=== PATIENT | male | born 1995 | race African-American/Black ===

== ENCOUNTER 2019-09-06 08:30 | Emergency (ER) | payer SELFPAY ==
[2019-09-06] MEDS ORDERED: HYDROCODONE/APAP 10/325 TAB ONE (09:13)
[2019-09-06] MEDS ORDERED: DIAZEPAM 5 MG TABLET ONE (09:13)
--- NOTE | 2019-09-06 10:36 | ER ---
Nurse's Notes [facility] Name: Chris Goldberg Age: 24 yrs Sex: Male : 1995 Arrival Date: 09/06/2019 Time: 08:34 Bed 19 Private MD: Diagnosis: Low back pain Presentation: 09/06 08:59 Presenting complaint: Patient states: kemar mid back pain all morning, had similar iw episode a week ago, hx of back pain but this feels different than usual pain, denies injury, denies urinary s/s. Transition of care: patient was not received from another setting of care. Onset of symptoms was September 06, 2019. Risk Assessment: Do you want to hurt yourself or someone else? Patient reports no desire to harm self or others. Initial Sepsis Screen: Does the patient meet any 2 criteria? No. Patient's initial sepsis screen is negative. Does the patient have a suspected source of infection? No. Patient's initial sepsis screen is negative. Care prior to arrival: None. 08:59 Method Of Arrival: Ambulatory iw 08:59 Acuity: YOLI 3 iw Historical: - Allergies: 09:02 NKDA; iw - Home Meds: 09:02 None [Active]; iw - PMHx: 09:02 Arthritis; Asthma; iw - PSHx: 09:02 None; iw - Immunization history:: Adult Immunizations not up to date. - Coronavirus screen:: The patient has NOT traveled to [place], [place], or [place] in the past 14 days. Proceed with normal triage process as indicated. - Social history:: Smoking status: Patient denies any tobacco usage or history of. - Ebola Screening: : Patient negative for fever greater than or equal to 101.5 degrees Fahrenheit, and additional compatible Ebola Virus Disease symptoms Patient denies exposure to infectious person Patient denies travel to an Ebola-affected area in the 21 days before illness onset No symptoms or risks identified at this time. Screenin:26 Abuse screen: Denies threats or abuse. Denies injuries from another. Nutritional sg screening: No deficits noted. Tuberculosis screening: No symptoms or risk factors identified. Never had TB. Fall Risk None identified. Assessment: 08:55 General: Appears in no apparent distress. well groomed, well developed, well nourished, sg Behavior is calm, cooperative, appropriate for age. Pain: Complains of pain in lumbar area Quality of pain is described as aching, sharp, stabbing. Neuro: Level of Consciousness is awake, alert, obeys commands, Oriented to person, place, time, Speech is normal, Facial symmetry appears normal. Cardiovascular: Patient's skin is warm and dry. Chest pain is denied. Respiratory: Airway is patent Respiratory effort is even, unlabored, Respiratory pattern is regular, symmetrical. GI: No signs and/or symptoms were reported involving the gastrointestinal system. : No signs and/or symptoms were reported regarding the genitourinary system. EENT: No signs and/or symptoms were reported regarding the EENT system. Derm: Skin is intact, is healthy with good turgor, Skin is dry, Skin is normal. Musculoskeletal: Circulation, motion, and sensation intact. Range of motion: ambulatory with slow steady gait. Vital Signs: 09:02 BP 133 / 85; Pulse 73; Resp 16; Temp 98.0; Pulse Ox 100% on R/A; Weight 56.7 kg; Height iw 5 ft. 8 in. (172.72 cm); Pain 810; 09:02 Body Mass Index 19.01 (56.70 kg, 172.72 cm) ED Course: 08:34 Patient arrived in ED. mr 08:43 Giuseppe Rivas PA is PHCP. [facility] 08:43 Raphael Moreno MD is Attending Physician. [facility] 09:01 Triage completed. iw 09:02 Arm band placed on. iw 09:07 Kashmir Manzano, RN is Primary Nurse. sg 10:33 Awaiting transportation. sg Administered Medications: 09:14 Drug: Valium 5 mg Route: PO; sg 09:14 Drug: [place] 10 mg-325 mg 1 tabs Route: PO; sg Outcome: 10:35 Discharge ordered by . [facility] 11:48 Patient left the ED. sg Signatures: Kashmir Manzano, CLAIR SELF Giuseppe Rivas PA PA [facility] Alina Mitchell Carisa Hunter RN RN
--- NOTE | 2019-09-06 10:36 | EDPHYS ---
Physician Documentation [facility] Name: Chris Goldberg Age: 24 yrs Sex: Male : 1995 Arrival Date: 09/06/2019 Time: 08:34 Bed 19 Private MD: MANJU Physician Raphael Moreno HPI: 09/06 09:06 This 24 yrs old Black Male presents to ER via Ambulatory with complaints of Back Pain. jmm 09:06 The patient presents with pain that is acute. Onset: The symptoms/episode jmm began/occurred this morning. The pain does not radiate. Associated signs and symptoms: Pertinent negatives: abdominal pain, dysuria, fever, incontinence, numbness, tingling, urinary retention, vomiting, weakness. The patient has experienced similar episodes in the past. Patient states he awoke to lower back pain. Patient states he has chronic back pain with a similar episode approx 2 weeks ago. Pain is intense and states it makes him short of breath. Patient denies IV drug use, fever, or a history of spinal surgery. . Historical: - Allergies: 09:02 NKDA; iw - Home Meds: 09:02 None [Active]; iw - PMHx: 09:02 Arthritis; Asthma; iw - PSHx: 09:02 None; iw - Immunization history:: Adult Immunizations not up to date. - Coronavirus screen:: The patient has NOT traveled to [place], [place], or [place] in the past 14 days. Proceed with normal triage process as indicated. - Social history:: Smoking status: Patient denies any tobacco usage or history of. - Ebola Screening: : Patient negative for fever greater than or equal to 101.5 degrees Fahrenheit, and additional compatible Ebola Virus Disease symptoms Patient denies exposure to infectious person Patient denies travel to an Ebola-affected area in the 21 days before illness onset No symptoms or risks identified at this time. ROS: 09:06 Constitutional: Negative for fever, chills, and weight loss, Cardiovascular: Negative jm for chest pain, palpitations, and edema, Respiratory: Negative for shortness of breath, cough, wheezing, and pleuritic chest pain. 09:06 Back: Positive for pain with movement. 09:06 All other systems are negative. Exam: 09:06 Constitutional: This is a well developed, well nourished patient who is awake, alert, jmm and in no acute distress. Head/Face: atraumatic. Eyes: EOMI, no conjunctival erythema appreciated ENT: Moist Mucus Membranes Neck: Trachea midline, Supple Chest/axilla: Normal chest wall appearance and motion. Cardiovascular: Regular rate and rhythm. No edema appreciated Respiratory: Normal respirations, no respiratory distress appreciated 09:06 Back: pain, that is moderate, of the lumbar area. 09:06 Musculoskeletal/extremity: ROM: intact in all extremities. 09:06 Neuro: Orientation: is normal, Mentation: is normal, Memory: is normal. 09:06 Psych: Behavior/mood is pleasant, cooperative. Vital Signs: 09:02 BP 133 / 85; Pulse 73; Resp 16; Temp 98.0; Pulse Ox 100% on R/A; Weight 56.7 kg; Height iw 5 ft. 8 in. (172.72 cm); Pain 8/10; 09:02 Body Mass Index 19.01 (56.70 kg, 172.72 cm) iw MDM: 08:54 Patient medically screened. [facility] 10:32 Data reviewed: vital signs, nurses notes. Counseling: I had a detailed discussion with [facility] the patient and/or guardian regarding: the historical points, exam findings, and any diagnostic results supporting the discharge/admit diagnosis, the need for outpatient follow up, to return to the emergency department if symptoms worsen or persist or if there are any questions or concerns that arise at home. ED course: Pain is relieved in the ED. Episode is similar to previous. I do not suspect abscess, cord compression, or cauda equina. Patient is advised to follow up with pcp and otherwise given strict return precautions. Patient understood and agrees with the plan of care. . Administered Medications: 09:14 Drug: Valium 5 mg Route: PO; sg 09:14 Drug: [place] 10 mg-325 mg 1 tabs Route: PO; sg Disposition: 14:47 Co-signature as Attending Physician, Raphael Moreno MD I agree with the assessment and [facility] plan of care. Disposition: 09/06/19 10:35 Discharged to Home. Impression: Low back pain. - Condition is Stable. - Discharge Instructions: Back Pain, Adult. - Prescriptions for Prednisone 20 mg Oral Tablet - take 3 tablet by ORAL route once daily for 5 days; 15 tablet. orphenadrine citrate 100 mg Oral Tablet Sustained Release - take 1 tablet by ORAL route 2 times per day As needed; 20 tablet. - Medication Reconciliation Form, Thank You Letter, Antibiotic Education, Prescription Opioid Use form. - Follow up: Private Physician; When: 2 - 3 days; Reason: Recheck today's complaints, Continuance of care, Re-evaluation by your physician. Signatures: Kashmir Manzano RN RN sg Anderson, Corey, MD MD cha Mickail, Joel, PA PA jmm Williams, Irene, RN RN iw Corrections: (The following items were deleted from the chart) 11:48 10:35 09/06/2019 10:35 Discharged to Home. Impression: Low back pain. Condition is sg Stable. Forms are Medication Reconciliation Form, Thank You Letter, Antibiotic Education, Prescription Opioid Use. Follow up: Private Physician; When: 2 - 3 days; Reason: Recheck today's complaints, Continuance of care, Re-evaluation by your physician. [facility]
[2019-09-06 12:00] VITALS: BP 133/85; TEMP 98; O2SAT 100
== END 2019-09-06 11:48 | disposition home or self-care (01) ==
LOC: ER 08:30
DX: M54.5 Low back pain (principal)
CPT/HCPCS: 99282

== ENCOUNTER 2021-08-18 17:26 | Emergency (ER) | payer SELFPAY ==
--- NOTE | 2021-08-18 19:57 | ER ---
Nurse's Notes [facility] Name: Chris Goldberg Age: 26 yrs Sex: Male : 1995 Arrival Date: 08/18/2021 Time: 17:27 Bed 11 Private MD: Diagnosis: Otitis media, unspecified, right ear Presentation: 08/18 18:15 Chief complaint: Patient states: both ears hurt but the left has more pressure than the jg9 right, I had a URI 3 weeks ago and I was getting back to normal but then I noticed my ears bothering me. Coronavirus screen: Vaccine status: Patient reports being unvaccinated. Ebola Screen: Patient negative for fever greater than or equal to 101.5 degrees Fahrenheit, and additional compatible Ebola Virus Disease symptoms Patient denies exposure to infectious person. Patient denies travel to an Ebola-affected area in the 21 days before illness onset. Initial Sepsis Screen: Does the patient meet any 2 criteria? No. Patient's initial sepsis screen is negative. Does the patient have a suspected source of infection? No. Patient's initial sepsis screen is negative. Risk Assessment: Do you want to hurt yourself or someone else? Patient reports no desire to harm self or others. Onset of symptoms is unknown. 18:15 Method Of Arrival: Ambulatory 9 18:15 Acuity: YOLI 5 jg9 Triage Assessment: 18:18 General: Appears in no apparent distress. Behavior is calm, cooperative. Pain: jg9 Complains of pain in right ear and left ear. EENT: Reports pressure in both ears more on left than r recent URI. Historical: - Allergies: 18:17 NKDA; jg9 - PMHx: 18:17 Arthritis; Asthma; jg9 - Immunization history:: Client reports having NOT received the Covid vaccine. Pneumococcal vaccine is not up to date, Flu vaccine is not up to date. - Social history:: Smoking status: Patient/guardian denies using tobacco, the patient reports quitting approximately 1 years ago. Screenin:18 Abuse screen: Denies threats or abuse. Denies injuries from another. Nutritional jg9 screening: No deficits noted. Tuberculosis screening: No symptoms or risk factors identified. Fall Risk None identified. Assessment: 19:59 General: Appears in no apparent distress. Behavior is calm, cooperative, appropriate ab2 for age. Pain: Complains of pain in right ear and left ear Pain currently is 4 out of 10 on a pain scale. Neuro: No deficits noted. 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 Gait is steady. Cardiovascular: No deficits noted. Denies chest pain, shortness of breath, Heart tones S1 S2 present Patient's skin is warm and dry. Respiratory: No deficits noted. Airway is patent Breath sounds are clear bilaterally. GI: No deficits noted. No signs and/or symptoms were reported involving the gastrointestinal system. : No deficits noted. No signs and/or symptoms were reported regarding the genitourinary system. EENT: Reports ear drainage bilaterally. Derm: No deficits noted. No signs and/or symptoms reported regarding the dermatologic system. Musculoskeletal: No deficits noted. No signs and/or symptoms reported regarding the musculoskeletal system. Vital Signs: 18:15 BP 127 / 83; Pulse 78; Resp 16; Temp 98.2; Pulse Ox 100% on R/A; Weight 58.97 kg (R); jg9 Height 5 ft. 7 in. (170.18 cm) (R); 20:04 BP 135 / 73; Pulse 78; Resp 16; Temp 97.8; Pulse Ox 100% ; lt3 18:15 Body Mass Index 20.36 (58.97 kg, 170.18 cm) jg9 ED Course: 17:27 Patient arrived in ED. as 18:17 Triage completed. jg9 18:19 Arm band placed on right wrist. jg9 19:50 Jean Paul Dominguez NP is PHCP. pm1 19:50 Brenton Head MD is Attending Physician. pm1 19:58 Rey Fiore is Primary Nurse. ab2 20:00 Bed in low position. Call light in reach. Side rails up X2. ab2 20:00 No provider procedures requiring assistance completed. Patient did not have IV access ab2 during this emergency room visit. Administered Medications: No medications were administered Outcome: 19:56 Discharge ordered by . pm1 20:04 Discharged to home ab2 20:04 Condition: good 20:04 Discharge instructions given to patient, Instructed on discharge instructions, Demonstrated understanding of instructions, medications. 20:05 Patient left the ED. ab2 Signatures: Aislinn Cash Patrick, GAMBLING FLOOR SUPERVISOR GAMBLING FLOOR SUPERVISOR pm1 Ramona Lora lt3 Beth Juan RN RN jg9 Rey Fiore ab2
--- NOTE | 2021-08-18 19:57 | EDPHYS ---
Physician Documentation [facility] Name: Chris Goldberg Age: 26 yrs Sex: Male : 1995 Arrival Date: 08/18/2021 Time: 17:27 Bed 11 Private MD: ED Physician Brenton Head HPI: 08/18 19:55 This 26 yrs old Black Male presents to ER via Ambulatory with complaints of Ear Pain. pm1 19:55 The patient presents with pain. The complaints affect the right ear and left ear. pm1 Onset: The symptoms/episode began/occurred today. Modifying factors: The symptoms are alleviated by nothing, the symptoms are aggravated by nothing. Associated signs and symptoms: Pertinent negatives: fever. Severity of symptoms: in the emergency department the symptoms are unchanged. The patient has not experienced similar symptoms in the past. The patient has not recently seen a physician. right ear worse than left ear. Historical: - Allergies: 18:17 NKDA; jg9 - PMHx: 18:17 Arthritis; Asthma; jg9 - Immunization history:: Client reports having NOT received the Covid vaccine. Pneumococcal vaccine is not up to date, Flu vaccine is not up to date. - Social history:: Smoking status: Patient/guardian denies using tobacco, the patient reports quitting approximately 1 years ago. ROS: 19:55 Constitutional: Negative for fever, chills, and weight loss. pm1 19:55 Cardiovascular: Negative for chest pain, palpitations, and edema, Respiratory: Negative for shortness of breath, cough, wheezing, and pleuritic chest pain, Abdomen/GI: Negative for abdominal pain, nausea, vomiting, diarrhea, and constipation, MS/Extremity: Negative for injury and deformity, Skin: Negative for injury, rash, and discoloration, Neuro: Negative for headache, weakness, numbness, tingling, and seizure. 19:55 ENT: Positive for ear pain, Negative for sore throat. 19:55 All other systems are negative. Exam: 19:55 Constitutional: This is a well developed, well nourished patient who is awake, alert, pm1 and in no acute distress. Head/Face: Normocephalic, atraumatic. 19:55 Skin: Warm, dry with normal turgor. Normal color with no rashes, no lesions, and no evidence of cellulitis. MS/ Extremity: Pulses equal, no cyanosis. Neurovascular intact. Full, normal range of motion. 19:55 Eyes: Exam is negative for acute changes, Extraocular movements: no acute changes, Conjunctiva: no acute changes, no injection, Sclera: no acute changes, icterus, is not appreciated. 19:55 ENT: External ear(s): are unremarkable, Ear canal(s): are normal, TM's: bulging, bilaterally, erythema, that is mild, on the right, Posterior pharynx: no acute changes, Airway: no evidence of obstruction, Tonsils: are normal in appearance, peritonsillar mass, is not appreciated. 19:55 Cardiovascular: Exam negative for acute changes, Rate: normal, Rhythm: regular, Pulses: no pulse deficits are appreciated. 19:55 Respiratory: Exam negative for acute changes, respiratory distress, shortness of breath. 19:55 Neuro: Exam negative for acute changes, Orientation: is normal, Mentation: is normal, Motor: is normal, moves all fours. Vital Signs: 18:15 BP 127 / 83; Pulse 78; Resp 16; Temp 98.2; Pulse Ox 100% on R/A; Weight 58.97 kg (R); jg9 Height 5 ft. 7 in. (170.18 cm) (R); 20:04 BP 135 / 73; Pulse 78; Resp 16; Temp 97.8; Pulse Ox 100% ; lt3 18:15 Body Mass Index 20.36 (58.97 kg, 170.18 cm) jg9 MDM: 19:50 Patient medically screened. pm1 19:55 Data reviewed: vital signs. Data interpreted: Pulse oximetry: on room air is 100 %. pm1 Interpretation: normal. Counseling: I had a detailed discussion with the patient and/or guardian regarding: the historical points, exam findings, and any diagnostic results supporting the discharge/admit diagnosis, the need for outpatient follow up, to return to the emergency department if symptoms worsen or persist or if there are any questions or concerns that arise at home. Administered Medications: No medications were administered Disposition: 22:00 Co-signature as Attending Physician, Brenton Head MD I agree with the assessment and kdr plan of care. Disposition Summary: 08/18/21 19:56 Discharge Ordered Location: Home pm1 Problem: new pm1 Symptoms: have improved pm1 Condition: Stable pm1 Diagnosis - Otitis media, unspecified, right ear pm1 Followup: pm1 - With: Emergency Department - When: As needed - Reason: Worsening of condition Followup: pm1 - With: Private Physician - When: 2 - 3 days - Reason: Recheck today's complaints, Continuance of care, Re-evaluation by your physician Discharge Instructions: - Discharge Summary Sheet pm1 - Otitis Media, Adult pm1 Forms: - Medication Reconciliation Form pm1 - Thank You Letter pm1 - Antibiotic Education pm1 - Prescription Opioid Use pm1 Prescriptions: - Amoxicillin 500 mg Oral Capsule - take 1 capsule by ORAL route every 8 hours for 10 days; 30 tablet; Refills: 0, pm1 Product Selection Permitted - guaifenesin 400 mg Oral tablet - take 1 tablet by ORAL route every 4 hours As needed as needed; 20 tablet; pm1 Refills: 0, Product Selection Permitted Signatures: Brenton Head MD MD kdr Marinas, Patrick, NP ROASTER HELPER pm1 Beth Juan RN RN jg9
[2021-08-18 20:10] VITALS: O2SAT 100
[2021-08-18 20:11] VITALS: BP 135/73; TEMP 97.8
== END 2021-08-18 20:05 | disposition home or self-care (01) ==
LOC: ER 17:26
DX: H66.91 Otitis media, unspecified, right ear (principal)
CPT/HCPCS: 99281

== ENCOUNTER 2022-04-04 08:02 | Emergency (ER) | payer OTHER, SELFPAY ==
[2022-04-04] MEDS ORDERED: FLUORESCEIN SODIUM 1 MG/WRAP ONE (08:35)
[2022-04-04] MEDS ORDERED: TETRACAINE HCL 0.5% 4ML OPTH ONE (08:35)
[2022-04-04] MEDS ORDERED: Ringers Lactate 1,000 ML IV ONE (08:46)
--- NOTE | 2022-04-04 10:25 | ER ---
Nurse's Notes 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 Coronavirus screen: At this time, the client does not indicate any symptoms associated with coronavirus-19. Ebola Screen: Patient negative for fever greater than or equal to 101.5 degrees Fahrenheit, and additional compatible Ebola Virus Disease symptoms Patient denies exposure to infectious person. Patient denies travel to an Ebola-affected area in the 21 days before illness onset. No symptoms or risks identified at this time. Initial Sepsis Screen: Does the patient meet any 2 criteria? No. Patient's initial sepsis screen is negative. Does the patient have a suspected source of infection? No. Patient's initial sepsis screen is negative. Risk Assessment: Do you want to hurt yourself or someone else? Patient reports no desire to harm self or others. Onset of symptoms was April 04, 2022. 08:11 Method Of Arrival: Ambulatory iw 08:11 Acuity: YOLI 4 iw Historical: - Allergies: 08:13 NKDA; iw - PMHx: 08:13 Arthritis; Asthma; iw - Immunization history:: Adult Immunizations unknown. - Social history:: Smoking status: Patient denies any tobacco usage or history of. Screenin:31 Abuse screen: Denies threats or abuse. Denies injuries from another. Nutritional iw screening: No deficits noted. Tuberculosis screening: No symptoms or risk factors identified. Fall Risk None identified. Assessment: 08:31 General: Appears in no apparent distress. uncomfortable, Behavior is calm, cooperative. iw Pain: Complains of pain in left eye. Neuro: Level of Consciousness is awake, alert, obeys commands, Oriented to person, place, time, situation, Moves all extremities. Cardiovascular: Patient's skin is warm and dry. Respiratory: Respiratory effort is even, unlabored, Respiratory pattern is regular. EENT: Eyes are tearing on outer aspect of conjuctiva of left eye, iris of left eye and inner aspect of conjunctiva of left eye Sclera/Cornea are reddened in outer aspect of conjuctiva of left eye, iris of left eye and inner aspect of conjunctiva of left eye. Derm: Skin is intact, is healthy with good turgor. Musculoskeletal: Range of motion: intact in all extremities. Vital Signs: 08:11 BP 133 / 81; Pulse 76; Resp 16; Pulse Ox 100% on R/A; iw ED Course: 08:04 Patient arrived in ED. am2 08:09 Raphael Sarmiento PA is PHCP. cp 08:10 Karl Blanco DO is Attending Physician. cp 08:13 Triage completed. iw 08:14 Carisa Hunter, RN is Primary Nurse. iw 08:31 Arm band placed on. iw 08:32 Assist provider with eye exam of left eye. using fluorescein stain, Performed by Raphael iw Guillermina MENDIETA Patient tolerated well. 08:35 Patient has correct armband on for positive identification. iw 10:22 Lazaro Ken MD is Referral Physician. cp 10:54 Patient did not have IV access during this emergency room visit. iw Administered Medications: 08:32 Drug: Tetracaine Drops 0.5 % 1 drops {Note: administered by PA for eye exam.} Route: aa5 Ophthalmic; Site: left eye; 08:54 Drug: Lactated Ringers Solution 1000 ml {Note: left eye for irrigation .} Route: IV; iw Rate: 1000 ml/hr; Site: Other; 10:00 Follow up: IV Status: Completed infusion iw 10:25 Drug: Gentamicin Drops 0.3 % 1 drops Route: Ophthalmic; Site: left eye; aa5 Medication: 08:45 VIS not applicable for this client. iw Outcome: 10:24 Discharge ordered by . cp 10:54 Discharged to home ambulatory. iw 10:54 Condition: good 10:54 Discharge instructions given to patient, Instructed on discharge instructions, follow up and referral plans. medication usage, Demonstrated understanding of instructions, follow-up care, medications, Prescriptions given X 1. 10:55 Patient left the ED. iw Signatures: Carisa Hunter, RN RN iw Lisa Springer RN RN aa5 Raphael Sarmiento PA PA cp Moreno, Amanda am2 Corrections: (The following items were deleted from the chart) 08: 08:11 Pulse 76bpm; Resp 16bpm; Pulse Ox 100% RA; iw iw 10:29 10:00 Tetracaine Drops 0.5 % 1 drops Ophthalmic in left eye aa5 aa5
--- NOTE | 2022-04-04 10:25 | EDPHYS ---
Physician Documentation [facility] Name: Chris Goldberg Age: 27 yrs Sex: Male : 1995 Arrival Date: 04/04/2022 Time: 08:04 Bed 11 Private MD: ED Physician Karl Blanco HPI: 04/04 08:20 This 27 yrs old Black Male presents to ER via Ambulatory with complaints of Chemical cp Exposure In Eye. 08:20 The patient sustained a splash, to the left eye, caused by cleaning solution. Onset: cp The symptoms/episode began/occurred just prior to arrival. Associated signs and symptoms: Pertinent negatives: dizziness, fever, headache, runny nose. Patient does not utilize any form of vision correction. 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 Historical: - Allergies: 08:13 NKDA; iw - PMHx: 08:13 Arthritis; Asthma; iw - Immunization history:: Adult Immunizations unknown. - Social history:: Smoking status: Patient denies any tobacco usage or history of. ROS: 08:25 Eyes: Positive for foreign body sensation, pain, redness, of the left eye, Negative for cp discharge. 08:25 Constitutional: Negative for body aches, chills, fever, poor PO intake. cp 08:25 Respiratory: Negative for cough, shortness of breath, wheezing. 08:25 Skin: Negative for cellulitis, rash. Exam: 08:30 Constitutional: The patient appears in no acute distress, alert, awake, well developed, cp well nourished, uncomfortable. 08:30 Head/Face: Normocephalic, atraumatic. cp 08:30 Eyes: Periorbital structures: appear normal, Pupils: equal, round, and reactive to light and accomodation, Extraocular movements: intact throughout, Conjunctiva: injected, in the left eye, Corneas: abrasion, that is small, lower aspect of left cornea, foreign body, is not appreciated, a fluorescein strip employed to appreciate the findings, Lids and lashes: appear normal, on the left, Visual tate: are intact, Examination of the other eye reveals no obvious gross abnormality. 08:30 ENT: External ear(s): are unremarkable, Nose: Mouth: Lips: moist, Oral mucosa: pink and intact, moist, Posterior pharynx: Airway: no evidence of obstruction, patent. 08:30 Chest/axilla: Inspection: normal. cp 08:30 Cardiovascular: Rate: normal, Rhythm: regular. 08:30 Respiratory: the patient does not display signs of respiratory distress, Respirations: normal, no use of accessory muscles, no retractions, labored breathing, is not present, Breath sounds: are clear throughout, no decreased breath sounds, no stridor, no wheezing. 08:30 Skin: no rash present. Vital Signs: 08:11 BP 133 / 81; Pulse 76; Resp 16; Pulse Ox 100% on R/A; iw MDM: 08:16 Patient medically screened. cp 08:35 Differential diagnosis: Corneal abrasion of left eye. Foreign body in left eye. cp Chemical conjunctivitis in left eye. 10:24 Data reviewed: vital signs, nurses notes. cp 10:24 Counseling: I had a detailed discussion with the patient and/or guardian regarding: the cp historical points, exam findings, and any diagnostic results supporting the discharge/admit diagnosis, the need for outpatient follow up, an opthalmologist, to return to the emergency department if symptoms worsen or persist or if there are any questions or concerns that arise at home. Response to treatment: the patient's symptoms have markedly improved after treatment, and as a result, I will discharge patient. 04/04 08:16 Order name: Eye Tray; Complete Time: 08:29 cp 04/04 08:16 Order name: Fluoresene Opth strip; Complete Time: 08:29 cp 04/04 08:16 Order name: Visual Acuity; Complete Time: 10:18 cp 04/04 08:16 Order name: Misc. Order: eye irrigation; Complete Time: 08:55 cp Administered Medications: 08:32 Drug: Tetracaine Drops 0.5 % 1 drops {Note: administered by PA for eye exam.} Route: aa5 Ophthalmic; Site: left eye; 08:54 Drug: Lactated Ringers Solution 1000 ml {Note: left eye for irrigation .} Route: IV; iw Rate: 1000 ml/hr; Site: Other; 10:00 Follow up: IV Status: Completed infusion iw 10:25 Drug: Gentamicin Drops 0.3 % 1 drops Route: Ophthalmic; Site: left eye; aa5 Disposition: 04/05 10:46 Co-signature as Attending Physician, Karl Blanco DO I was immediately available on-site ms3 in the Emergency Department for consultation in the care of the patient. . Disposition Summary: 04/04/22 10:24 Discharge Ordered Location: Home cp Problem: new cp Symptoms: have improved cp Condition: Stable cp Diagnosis - Other conjunctivitis - chemical left eye cp - Injury of conjunctiva and corneal abrasion without foreign body, left eye, initial cp encounter Followup: cp - With: Lazaro Ken MD - When: 1 - 2 days - Reason: Recheck today's complaints Discharge Instructions: - Discharge Summary Sheet cp - Chemical Conjunctivitis, Adult cp - Corneal Abrasion cp Forms: - Medication Reconciliation Form cp - Thank You Letter cp - Antibiotic Education cp - Prescription Opioid Use cp Prescriptions: - Gentamicin 0.3 % Ophthalmic Drops - instill 1 drop by OPHTHALMIC route every 4 hours for 7 days; 1 bottle; Refills: cp 0, Product Selection Permitted Signatures: Carisa Hunter RN RN iw Lisa Springer RN RN aa5 Raphael Sarmiento PA PA cp Karl Blanco DO DO ms3 Corrections: (The following items were deleted from the chart) 09:34 04/04 08:20 Patient c/o redness and pain to left eye after unknown solution splashed 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 cp
[2022-04-04] MEDS ORDERED: GENTAMICIN 0.3% OPTH DROP 5ML ONE (10:34)
[2022-04-04 11:00] VITALS: BP 133/81; O2SAT 100
== END 2022-04-04 10:55 | disposition home or self-care (01) ==
LOC: ER 08:02
DX: S05.02XA Injury of conjunctiva and corneal abrasion without foreign body, left eye, initial encounter (principal); H10.212 Acute toxic conjunctivitis, left eye
CPT/HCPCS: 96360; 99283; J7120

== ENCOUNTER 2024-12-16 08:22 | Emergency (ER) | payer OTHER, SELFPAY ==
--- OUTSIDE RECORDS SUMMARY | 2024-12-16 08:25 | XMS REPORT | Continuity of Care Document ---
Author Name Unknown Address [address] [place] [address] [address] [place] [address] [facility] Address [address] [place] [address] Care Team Providers Care Funeral Home Director Name Role Phone Unavailable Unavailable Unavailable Encounters Start Date/Time End Date/Time Encounter Type Admission Type Attending Clinicians Care Facility Care Department Encounter ID Source 2023-08-06 13:38:35 2023-08-06 13:38:35 Outpatient [facility] [id number] Mike Steel
[2024-12-16] MEDS ORDERED: ONDANSETRON 4 MG/2 ML VIAL ONE (08:56)
[2024-12-16] MEDS ORDERED: FAMOTIDINE 20 MG/2 ML VIAL IV ONE (08:57)
[2024-12-16] MEDS ORDERED: NA CHLORIDE 0.9% 1,000 ML ONE (08:57)
[2024-12-16 09:01] LABS: Absolute Lymphocytes (CBC) 1.1 K/uL (0.7-4.9); Absolute Monocytes 0.6 K/uL (0.1-1.3); Absolute Neutrophil 3.8 K/uL (1.8-8.0); Basophils % 0.5 % (0-1.3); Eosinophils % 0.4 % (0-4.4); Hematocrit 43.5 % (39.6-49.0); Hemoglobin 14.9 g/dL (13.6-17.9); Lymphocytes % 19.6 % (15.3-44.8); MCH 29.9 pg (27.0-35.0); MCHC 34.3 g/dL (32.0-36.0); MCV 87.2 fL (80-100); MPV 7.6 fL (7.6-11.3); Monocytes % 10.5 % (3.3-12.3); Nucleated Red Blood Cells % 0.1 % (0-0); Platelets 186 thou/uL (152-406); RBC Red Blood Cell Count 4.99 M/uL (4.33-5.43); Red Cell Distribution Width 13.8 % (12.1-15.2)
[2024-12-16 09:41] LABS: Albumin 3.8 g/dL (3.4-5.0); Anion Gap 12.7 mEq/L (5.0-15.0); Bilirubin Total 0.3 mg/dL (0.2-1.0); Globulin 3.8 g/dL (2.3-3.5); Potassium 3.7 mEq/L (3.5-5.1); Protein, Total 7.6 g/dL (6.4-8.2)
--- NOTE | 2024-12-16 09:46 | ER ---
Nurse's Notes [facility] Name: Chris Goldberg Age: 29 yrs Sex: Male : 1995 Arrival Date: 12/16/2024 Time: 08:22 Bed 6 Private MD: Diagnosis: Nausea with vomiting, unspecified;Abdominal pain, unspecified;Elevated blood-pressure reading, without diagnosis of hypertension Presentation: 12/16 08:38 Chief complaint: Patient states: Abdominal pain with N/V since Friday. Coronavirus ll1 screen: Client denies travel out of the [place] in the last 14 days. fatigue, nausea, vomiting. Client presents with at least one sign or symptom that may indicate coronavirus-19. Standard/surgical mask placed on the client. Ebola Screen: Patient denies travel to an Ebola-affected area in the 21 days before illness onset. Initial Sepsis Screen: Does the patient meet any 2 criteria? No. Patient's initial sepsis screen is negative. Does the patient have a suspected source of infection? No. Patient's initial sepsis screen is negative. Risk Assessment: Do you want to hurt yourself or someone else? Patient reports no desire to harm self or others. Onset of symptoms was December 13, 2024. 08:38 Method Of Arrival: Ambulatory ll1 08:38 Acuity: YOLI 3 ll1 Historical: - Allergies: 08:30 NKDA; ll1 - PMHx: 08:30 Arthritis; Asthma; ll1 - Immunization history:: Adult Immunizations up to date. - Infectious Disease History:: Denies. - Social history:: Smoking status: Patient reports the use of cigarette tobacco products, denies chronic smoking, but will smoke occasionally. Screenin:05 [facility] ED Fall Risk Assessment (Adult) History of falling in the last 3 months, kc6 including since admission No falls in past 3 months (0 pts) Confusion or Disorientation No (0 pts) Intoxicated or Sedated No (0 pts) Impaired Gait No (0 pts) Mobility Assist Device Used No (0 pt) Altered Elimination No (0 pt) Score/Fall Risk Level 0 - 2 = Low Risk Oriented to surroundings, Maintained a safe environment, Educated pt \T\ family on fall prevention, incl call for assistance when getting out of bed. Abuse screen: Denies threats or abuse. Denies injuries from another. Nutritional screening: No deficits noted. Tuberculosis screening: No symptoms or risk factors identified. Assessment: 09:05 General: Appears in no apparent distress. uncomfortable, slender, well groomed, well kc6 developed, Behavior is calm, cooperative, appropriate for age. Pain: Complains of pain in right upper quadrant and left upper quadrant Pain does not radiate. Pain currently is 7 out of 10 on a pain scale. Quality of pain is described as dull, Pain began 2-3 days ago. Is intermittent, Noted to be grimacing, guarding. Neuro: Level of Consciousness is awake, alert, obeys commands, Oriented to person, place, time, situation, Appropriate for age. Cardiovascular: Capillary refill < 3 seconds. Respiratory: Airway is patent Trachea midline Respiratory effort is even, unlabored, Respiratory pattern is regular, symmetrical. GI: Abdomen is flat, non-distended, Bowel sounds present X 4 quads. Abd is soft X 4 quads Abdomen is tender to palpation X 4 quads. Guarding noted Reports upper abdominal pain, diarrhea, nausea, vomiting, Patient currently denies constipation. : Urine is clear, Reports urgency, urinary frequency. EENT: No signs and/or symptoms were reported regarding the EENT system. Derm: No signs and/or symptoms reported regarding the dermatologic system. Skin is intact, is healthy with good turgor, Skin is pink, warm \T\ dry. Musculoskeletal: No signs and/or symptoms reported regarding the musculoskeletal system. Circulation, motion, and sensation intact. Range of motion: intact in all extremities. Vital Signs: 08:38 BP 182 / 92; Pulse 74; Resp 15; Temp 98; Pulse Ox 98% ; Weight 58.97 kg; Height 5 ft. 7 ll1 in. ; Pain 6/10; 09:58 BP 155 / 95; Pulse 83; Resp 16; Pulse Ox 99% ; bp 08:38 Body Mass Index 20.36 (58.97 kg, 170.18 cm) ll1 08:38 Pain Scale: Adult ll1 ED Course: 08:28 Patient arrived in ED. gl 08:30 Darrel Ramírez, RN is Primary Nurse. bp 08:30 Arm band placed on Patient placed in an exam room, on a stretcher. ll1 08:39 Triage completed. ll1 08:40 Karl Blanco DO is Attending Physician. ms3 09:04 Initial lab(s) drawn, by me, sent to lab. Inserted saline lock: 20 gauge in right kc6 forearm, using aseptic technique. Blood collected. Flushed with 10 mL NS. Patient maintains SpO2 saturation greater than 95% on room air. 09:05 Patient has correct armband on for positive identification. Bed in low position. Call kc6 light in reach. Side rails up X 1. Adult w/ patient. Pulse ox on. NIBP on. Door closed. Noise minimized. Lights dimmed. Warm blanket given. Pillow given. Verbal reassurance given. 09:45 Sean Morton DO is Referral Physician. ms3 09:58 No provider procedures requiring assistance completed. IV discontinued, intact, bp bleeding controlled, No redness/swelling at site. Pressure dressing applied. Administered Medications: 09:04 Drug: Famotidine IVP 20 mg IVP once; dilute with 10 mL 0.9% NaCl; give over 2 minutes kc6 Route: IVP; Site: right antecubital; 09:42 Follow up: Response: No adverse reaction kc6 09:04 Drug: Ondansetron IVP 4 mg IVP once; over 2 minutes Route: IVP; Site: right antecubital;kc6 09:42 Follow up: Response: No adverse reaction kc6 09:04 Drug: NS 0.9% IV 1000 ml IV at 1000 ml once; to be given as a bolus over 60 minutes kc6 Route: IV; Rate: 1000 ml; Site: right antecubital; 09:52 Follow up: Response: No adverse reaction; IV Status: Completed infusion; IV Intake: kc6 1000ml Medication: 09:59 VIS not applicable for this client. bp Intake: 09:52 IV: 1000ml; Total: 1000ml. kc6 Outcome: 09:45 Discharge ordered by . ms3 09:58 Discharged to home ambulatory, with family, bp 09:58 Condition: stable 09:58 Discharge instructions given to patient, Instructed on discharge instructions, follow up and referral plans. medication usage, Demonstrated understanding of instructions, follow-up care, medications, Prescriptions given X 2, 09:59 Patient left the ED. bp Signatures: Darrel Ramírez RN RN bp Ellen Contreras RN RN ll1 Karl Blanco DO DO ms3 Daniella Rockwell RN RN kc6 Marianna Silvestre, Reg Reg gl
--- NOTE | 2024-12-16 09:46 | EDPHYS ---
Physician Documentation [facility] Name: Chris Goldberg Age: 29 yrs Sex: Male : 1995 Arrival Date: 12/16/2024 Time: 08:22 Bed 6 Private MD: ED Physician Karl Blanco HPI: 12/16 09:02 This 29 yrs old Black Male presents to ER via Ambulatory with complaints of Abdominal ms3 Pain. 09:02 29-year-old male with past medical history of asthma and arthritis [facility] department for nausea, vomiting, abdominal pain that began on Friday. Patient states he has had generalized abdominal pain that he rates a 6/10 and described as being dull. He denies any alleviating or inciting factors. Historical: - Allergies: 08:30 NKDA; ll1 - PMHx: 08:30 Arthritis; Asthma; ll1 - Immunization history:: Adult Immunizations up to date. - Infectious Disease History:: Denies. - Social history:: Smoking status: Patient reports the use of cigarette tobacco products, denies chronic smoking, but will smoke occasionally. ROS: 09:02 Constitutional: Negative for fever, and chills. Cardiovascular: Negative for chest ms3 pain, and palpitations. Respiratory: Negative for shortness of breath, cough, wheezing, and pleuritic chest pain, 09:02 Abdomen/GI: Positive for abdominal pain, nausea, vomiting, and diarrhea, Exam: 09:02 Constitutional: This is a well developed, well nourished patient who is awake, alert, ms3 and in no acute distress. Cardiovascular: Regular rate and rhythm with a normal S1 and S2. No gallops, murmurs, or rubs. Normal PMI, no JVD. No pulse deficits. Respiratory: Lungs have equal breath sounds bilaterally, clear to auscultation and percussion. No rales, rhonchi or wheezes noted. No increased work of breathing, no retractions or nasal flaring. MS/ Extremity: Pulses equal, no cyanosis. Neurovascular intact. Full, normal range of motion. 09:02 Abdomen/GI: Inspection: abdomen appears normal, Bowel sounds: normal, Palpation: moderate abdominal tenderness, in all quadrants, Vital Signs: 08:38 BP 182 / 92; Pulse 74; Resp 15; Temp 98; Pulse Ox 98% ; Weight 58.97 kg; Height 5 ft. 7 ll1 in. ; Pain 6/10; 09:58 BP 155 / 95; Pulse 83; Resp 16; Pulse Ox 99% ; bp 08:38 Body Mass Index 20.36 (58.97 kg, 170.18 cm) ll1 08:38 Pain Scale: Adult ll1 MDM: 08:48 Medical Screening Exam initiated ms3 09:02 Differential diagnosis: non-specific abd pain, Dehydration vs electrolyte abnormality ms3 vs htn. 09:46 Data reviewed: vital signs, nurses notes, lab test result(s), and as a result, I will ms3 discharge patient. I considered the following discharge prescriptions or medication management in the emergency department Medications were administered in the Emergency Department. See MAR. Counseling: I had a detailed discussion with the patient and/or guardian regarding the historical points, exam findings, and any diagnostic results supporting the discharge/admit diagnosis, the presence of at least one elevated blood pressure reading (>120/80) during this emergency department visit, lab results, the need for outpatient follow up. Special discussion: Based on the patient's Hx, exam, and Dx evaluation, there is no indication for emergent surgery or inpatient Tx. It is understood by the patient/guardian that if the Sx's persist or worsen they need to return immediately for re-evaluation. I have referred the patient to see his PCP for further evaluation of high blood pressure. ED course: Discussed normal CBC, CMP with patient. Patient to follow-up with primary care physician in 2 to 3 days. All questions were answered. Return precautions discussed include worsening symptoms, or any other concerns. 12/16 08:40 Order name: CBC with Diff; Complete Time: 09:42 ms3 12/16 08:40 Order name: CMP; Complete Time: 09:42 ms3 12/16 08:40 Order name: Lipase; Complete Time: 09:42 ms3 12/16 08:40 Order name: IV Saline Lock; Complete Time: 08:52 ms3 12/16 08:40 Order name: Labs collected and sent; Complete Time: 08:52 ms3 Administered Medications: 09:04 Drug: Famotidine IVP 20 mg IVP once; dilute with 10 mL 0.9% NaCl; give over 2 minutes kc6 Route: IVP; Site: right antecubital; 09:42 Follow up: Response: No adverse reaction kc6 09:04 Drug: Ondansetron IVP 4 mg IVP once; over 2 minutes Route: IVP; Site: right antecubital;kc6 09:42 Follow up: Response: No adverse reaction kc6 09:04 Drug: NS 0.9% IV 1000 ml IV at 1000 ml once; to be given as a bolus over 60 minutes kc6 Route: IV; Rate: 1000 ml; Site: right antecubital; 09:52 Follow up: Response: No adverse reaction; IV Status: Completed infusion; IV Intake: kc6 1000ml Disposition Summary: 12/16/24 09:45 Discharge Ordered Notes: Location: Home ms3 Condition: Stable ms3 Diagnosis - Nausea with vomiting, unspecified ms3 - Abdominal pain, unspecified ms3 - Elevated blood-pressure reading, without diagnosis of hypertension ms3 Followup: ms3 - With: Sean Morton DO - When: 2 - 3 days - Reason: Recheck today's complaints Discharge Instructions: - Discharge Summary Sheet ms3 - Abdominal Pain, Adult ms3 - Nausea and Vomiting, Adult ms3 Forms: - Medication Reconciliation Form ms3 - Antibiotic Education ms3 - Prescription Opioid Use ms3 - Patient Portal Instructions ms3 - Leadership Thank You Letter ms3 - Work release form kc6 Prescriptions: - ondansetron 4 mg Oral Tablet,disintegrating - take 1 tablet ORAL route every 8 hours; 15 tablet; Refills: 0, Product ms3 Selection Permitted - Pepcid 20 mg Oral Tablet - take 1 tablet ORAL route every 12 hours for 10 days; 20 tablet; Refills: 0, ms3 Product Selection Permitted Signatures: Dispatcher [employer] EDAL Ellen Contreras, RN RN ll1 Karl Blanco DO DO ms3 Daniella Rockwell RN RN kc6
[2024-12-16 10:20] VITALS: TEMP 98
[2024-12-16 10:31] VITALS: BP 155/95; O2SAT 99
== END 2024-12-16 09:59 | disposition home or self-care (01) ==
LOC: ER 08:22
DX: R11.2 Nausea with vomiting, unspecified (principal); R10.84 Generalized abdominal pain; R03.0 Elevated blood-pressure reading, without diagnosis of hypertension; F17.210 Nicotine dependence, cigarettes, uncomplicated
CPT/HCPCS: 36415; 80053; 83690; 85025; 96361; 96374; 96375; 99284; J2405; J7030